=== PATIENT | female | born 1960 | race African-American/Black ===

== ENCOUNTER 2017-08-29 10:38 | Emergency (ER) | payer OTHER ==
[~2017-08-29] VITALS: Ht 165.1 cm; Wt 99.8 kg
--- NOTE | 2017-08-29 11:07 | PHYS DOC ---
Past History Past Medical History: Diabetes, GERD, Hypertension, Hypothyroid Smoking: Non-smoker Alcohol Use: None Drug Use: None Adult General Chief Complaint Chief Complaint: Wound check HPI HPI 56-year-old female patient with history of diabetes had right knee replacement 9 days ago and was told to not change the dressing for 2 weeks after her surgery. Patient complaining of some drainage of her wound since last night and called her physician today who recommended to come to emergency room. Patient denies new pain, fever and chills, change of color of skin. Patient states she did not looked at the color of discharge. Patient currently taking Coumadin after her surgery and supposed t check PT/INR today without any orders from her physician. Review of Systems Review of Systems Constitutional: Denies fever or chills [] Eyes: Denies change in visual acuity, redness, or eye pain [] HENT: Denies nasal congestion or sore throat [] Respiratory: Denies cough or shortness of breath [] Cardiovascular: No additional information not addressed in HPI [] GI: Denies abdominal pain, nausea, vomiting, bloody stools or diarrhea [] : Denies dysuria or hematuria [] Musculoskeletal: Denies back pain, reports joint pain [] Integument: Denies rash or skin lesions [] Neurologic: Denies headache, focal weakness or sensory changes [] Endocrine: Denies polyuria or polydipsia [] All other systems were reviewed and found to be within normal limits, except as documented in this note. Physical Exam Physical Exam Constitutional: Well developed, well nourished, mild distress, non-toxic appearance. [] HENT: Normocephalic, atraumatic, bilateral external ears normal, oropharynx moist, no oral exudates, nose normal. [] Eyes: PERRLA, EOMI, conjunctiva normal, no discharge. [] Neck: Normal range of motion, no tenderness, supple, no stridor. [] Cardiovascular:Heart rate regular rhythm, no murmur [] Lungs & Thorax: Bilateral breath sounds clear to auscultation [] Abdomen: Bowel sounds normal, soft, no tenderness, no masses, no pulsatile masses. [] Skin: Warm, dry, no erythema, no rash. [] Back: No tenderness, no CVA tenderness. [] Extremities: No tenderness, no cyanosis, no clubbing, ROM intact, no edema, right knee with clean surgical wound in midline without erythema or discharge, small amount of dried blood around dressing, no neurovascular deficit] Neurologic: Alert and oriented X 3, normal motor function, normal sensory function, no focal deficits noted. []1 Psychologic: Affect normal, judgement normal, mood normal. [] EKG EKG [] Radiology/Procedures Radiology/Procedures [] Course & Med Decision Making Course & Med Decision Making Pertinent Labs and Imaging studies reviewed. (See chart for details) Evaluation of patient in ER showed 56-year-old male patient presented to ER for post right knee replacement wound check complaining of marked discharge from her wound since last night. Patient believes that she takes Coumadin but her medication list showed she is on Xarelto. Wound was clean without discharge and new dressing was placed. White count was normal and patient had blood sugar of 170 with history of diabetes mellitus. Patient psychiatric to follow-up with her orthopedic physician and return to ER if increased discharge from her wound. [] Dragon Disclaimer Dragon Disclaimer This electronic medical record was generated, in whole or in part, using a voice recognition dictation system. Departure Departure: Impression: Primary Impression: Encounter for postoperative wound check Additional Impression: Uncontrolled diabetes mellitus Disposition: HOME, SELF-CARE (At 1150) Condition: STABLE Patient Instructions: Diet - 2000 Calorie Diabetic, Sutured Wound Care Additional Instructions: Follow-up with your orthopedic physician in one or 2 days Continue your current home medication Return to ER if not getting better Problem Qualifiers FEILSHA MARIN MD Aug 29, 2017 11:07
[2017-08-29 11:21] LABS: BASO # 0.1 x10^3/uL (0.0-0.2); BASO % 1 % (0-3); EOS % 1 % (0-3); HEMOGLOBIN 12.1 g/dL (12.0-15.5); LYMPH # 2.5 x10^3/uL (1.0-4.8); LYMPH % 38 % (24-48); MEAN CORPUSCULAR HEMOGLOBIN 29 pg (25-35); MEAN CORPUSCULAR HGB CONC 33 g/dL (31-37); MEAN CORPUSCULAR VOLUME 88 fL (79-100); MONO # 0.5 x10^3/uL (0.0-1.1); MONO % 8 % (0-9); NEUT # 3.5 x10^3uL (1.8-7.7); NEUT % 53 % (31-73); PLATELET COUNT 397 x10^3/uL (140-400); RED BLOOD COUNT 4.23 x10^6/uL (3.50-5.40); WHITE BLOOD COUNT 6.6 x10^3/uL (4.0-11.0)
[2017-08-29 11:23] LABS: CALCIUM 9.8 mg/dL (8.5-10.1); GFR 57.6; POTASSIUM 3.9 mmol/L (3.5-5.1)
[2017-08-29 11:42] VITALS: BP 123/75
== END 2017-08-29 11:56 | disposition home or self-care (01) ==
LOC: ER 10:38
DX: Z48.01 Encounter for change or removal of surgical wound dressing (principal); E11.9 Type 2 diabetes mellitus without complications; E03.9 Hypothyroidism, unspecified; E11.65 Type 2 diabetes mellitus with hyperglycemia; I10 Essential (primary) hypertension; K21.9 Gastro-esophageal reflux disease without esophagitis; Z98.890 Other specified postprocedural states; Z96.651 Presence of right artificial knee joint
CPT/HCPCS: 36415; 80048; 85025; 85610; 99284